=== PATIENT | male | born 1950 | race Caucasian/White ===

== ENCOUNTER → 2017-11-09 | Outpatient (CLI) | payer OTHER ==
[~2017-11-09] MED LIST: ACYC800 PO; ALBU90OI6 INH; AMLO5 PO; ARTTEAOPSB OP; ATEN25; ATEN25 PO; ATOR10; AZIT500 PO; Amlodipine Besyl5 MG; BUPR100; Benadryl25 MG; CLON2; CLON2 PO; CYCL10; CYCL10 PO; DIAZ5 PO; DOXA4 PO; FLAX; GABA600; GEMF600; GEMF600 PO; Gemfibrozil600 MG; HYDACE5 PO; HYDACE5325 PO; HYDACE7.5 PO; HYDHCL25; LAMO100; LAMO25; LISI20 PO; LITH450ER; METF500; METF500C; METF850 PO; MULVITMINF; NAPR500 PO; NAPR500ERA; OMEP20ER PO; OMEPRAZOLE DR 20 MG; OPTLUBOPOA OD; OXYC10TA19 PO; PANT40; PENNAL50; PIOG30 PO; PRAV20; PRED10 PO; PROM25; PROP65 PO; Pravachol40 MG PO; Pravastatin Sod40 MG; Prilosec Otc20 MG PO; QUET100; QUET300; QUET300 PO; QVAR7.3 G1; QVAR7.3 G1 IH; RABE20; RXHYD5325 PO; Seroquel Xr400 MG; Seroquel Xr400 MG PO; TAMSULOSIN HCL0.4 MG; TOPI15C; TOPI50; TOPI50 PO; TRAM50 PO; TRIA80TC; VENL150ER PO; VENL75ER; VENLAFAXINE HC150 MG; ZIPR80 PO
== END | disposition home or self-care (01) ==
LOC: LAB SHORT 17:17 → LAB EV 17:17
DX: N39.0 Urinary tract infection, site not specified (principal)
CPT/HCPCS: 87086

== ENCOUNTER 2019-06-25 05:35 | Observation (INO) | payer OTHER ==
[~2019-06-25] VITALS: Ht 167.6 cm; Wt 70.6 kg
[2019-06-25 09:43] LABS: BASOPHILS ABSOLUTE AUTO 0.05 K/mm3 (0.00-0.23); BASOPHILS PERCENT AUTO 1 % (0-2); EOSINOPHILS PERCENT AUTO 1 % (0-6); Hematocrit 39.4 % (37.0-53.0); Hemoglobin 13.2 g/dL (13.5-17.5); IMMATURE GRAN ABSOLUTE AUTO 0.02 K/mm3 (0.00-0.10); IMMATURE GRAN PERCENT AUTO 0 % (0-1); LYMPHOCYTES ABSOLUTE AUTO 1.09 K/mm3 (0.84-5.20); LYMPHOCYTES PERCENT AUTO 11 % (21-46); MONOCYTES ABSOLUTE AUTO 0.18 K/mm3 (0.16-1.47); MONOCYTES PERCENT AUTO 2 % (4-13); Mean Corpuscular HGB 32.4 pg (26.0-34.0); Mean Corpuscular HGB Conc 33.5 g/dL (31.5-36.5); Mean Corpuscular Volume 97 fL (80-100); Mean Platelet Volume 10.3 fL (9.1-12.4); NEUTROPHILS ABSOLUTE AUTO 8.29 K/mm3 (1.96-9.15); NEUTROPHILS PERCENT AUTO 85 % (41-73); Platelet Count 261 K/mm3 (150-400); RDW Coefficient Variation 12.2 % (11.7-14.2); RDW Standard Deviation 43.3 fL (35.1-46.3); Red Blood Cell Count 4.08 M/mm3 (4.30-5.90); White Blood Cell Count 9.73 K/mm3 (4.00-11.30)
[2019-06-25 10:01] LABS: Alanine Aminotransfer (ALT/SGP 24 U/L (12-78); Albumin, Blood 3.8 g/dL (3.4-5.0); Albumin/Globulin Ratio 0.8 (0.8-1.8); Alk Phos 144 U/L (50-136); Anion Gap 6 mmol/L (6-16); Aspartate Aminotrans (AST/SGOT 33 U/L (12-37); Bilirubin, Total 0.3 mg/dL (0.1-1.0); Blood Urea Nitrogen 16 mg/dL (8-24); Bun/Creatinine Ratio 16.3 (12.0-20.0); CO2, Blood 27 mmol/L (21-32); Calcium, Blood 8.9 mg/dL (8.5-10.1); Chloride, Blood 107 mmol/L (98-108); Creatinine, Blood 0.98 mg/dL (0.60-1.20); Glomerular Filtration Rate >60 (60-); Glucose, Blood 111 mg/dL (70-99); Potassium, Blood 3.6 mmol/L (3.5-5.5); Sodium, Blood 140 mmol/L (136-145); Total Protein, Blood 8.8 g/dL (6.4-8.2)
--- NOTE | 2019-06-25 10:57 | NUR ---
PATIENT ARRIVED TO ICU ROOM 12 AFTER TELEPHONE REPORT WAS CALLED TO THIS RN BY SHE PAULA, ED, PATIENT WAS ABLE TO AMBULATE FROM STRETCHER TO BED, INITIAL APPEARANCE SHOWS LARGELY SWOLLEN LIPS AND TONGUE, BUT PATIENT STATED THAT HE CAN BREATHE AND SWALLOW WITHOUT ANY PROBLEMS, POLACED ON MONITOR, LUNG SOUNDS ARE COARSE WITH RHONCHI THROUGHOUT, PATIENT IS ON RA SATING AT 99 %, SR WITH HR IN 80'S TO 90'S, BOWEL TONES HYPOACTIVE, REPORTS LAST BM ON 06-24-19, USES URINAL TO VOID, BUT STATES THAT HE HAS URGENCY, FREQUENCY. AND THEN IS UNABLE TO INITIATE THE STREAM, POSSIBLE PROSTABE PROBLEM PER PATIENT, SKIN C/D/I OVERALL, PATIENT WAS ORIENTED TO ROOM AND NEW ENVIRONMENT, CALL LIGHT GIVEN AND EXPLAINED, PATIENT VERBALIZED UNDERSTANDING, BLOOD GLUCOSE CHECKED AT 129 NO COVERAGE NEEDED, ALSO RECEIVED BENADRYL AND SOLUMEDROL IV AND LOVENOX INJECTION, ALSO HAS NS INFUSING AT 100 CC/HR, PATIENT'S FRIENDS AT BEDSIDE, CALL LIGHT IN REACH, WILL CONTINUE TO MONITOR.
--- NOTE | 2019-06-25 11:50 | NUR ---
DR. GREENBERG IN TO SEE PATIENT AFTER HE C/O IT GETTING HARDER TO SWALLOW, NO NEW ORDERS RECEIVED.
--- NOTE | 2019-06-25 13:06 | NUR ---
PATIENT AGAIN STATED THAT IT FELT HARDER TO SWALLOW THAN BEFORE, DR. GREENBERG IN TO SEE PATIENT, NO NEW ORDERS RECEIVED.
--- NOTE | 2019-06-25 13:25 | NUR ---
PATIENT WATCHING TV, NO S/S OF DISTRESS, SWELLING ON LIPS APPEARS TO HAVE GONE DOWN CONSIDERABLY, CALL LIGHT IN REACH, WILL CONTINUE TO MONITOR.
--- NOTE | 2019-06-25 13:36 | NUR ---
PATIENT STATED THAT HE IS "FEELING BETTER", LIPS APPEAR MUCH LESS SWOLLEN AT THIS TIME, CALL LIGHT IN REACH, WILL CONTINUE TO MONITOR.
--- NOTE | 2019-06-25 14:02 | NUR ---
DR. GREENBERG IN TO CHECK ON PATIENT, CONDITION MUCH IMPROVIDE, NO NEW ORDERS RECEUVED.
--- NOTE | 2019-06-25 17:24 | NUR ---
DR. GREENBERG IN TO CHECK ON PATIENT AGAIN, ALLOWED SOME SIPS OF ICE WATER, PATIENT TOLERATING WELL, CALL LIGHT IN REACH, WILL CONTINUE TO MONITOR.
--- NOTE | 2019-06-25 17:43 | NUR ---
SHIFT SUMMARY NOTE: PATIENT IS DOING MUCH BETTER, SWELLING HAS GONE DOWN CONSIDERABLY, PATIENT HAS NO PROBLEM SWALLOWING OR BREATHING AT THIS TIME, ALLOWED TO HAVE SOME CHIPS AND SIPS, VSS, AFEBRILE, DENIES PAIN AT THIS TIME, SCD'S IN PLACE, BLOOD SUGARS WERE 129 AND 142 RESPECTIVELY, NO COVERAGE INDICATED, PATIENT IS ALERT AND ORIENTED, LUNG SOUNDS ARE IMPROVED, NSR WITH HR IN 90'S TO LOW 100'S, NS AT 50 CC/HR INFUSING VIA 20G ON LEFT FOREARM, PATIENT IS ON SOLUMEDROL, AND BENADRYL EVERY SIX HOURS, TOLERATING WELL, FOR DETAILS SEE SHIFT ASSESSMENT DOCUMENTATION AND NURSES NOTES, CALL LIGHT IN REACH, WILL CONTINUE TO MONITOR, AND GIVE REPORT TO ONCOMING SERICULTURE TEACHER.
--- NOTE | 2019-06-25 19:00 | NUR ---
ASSUMED CARE OF PT, BEDSIDE REPORT RECEIVED. PT IS RESTING QUIETLY RECLINING IN BED AND WATCHING TV. HE DENIES SOB/DYSPNEA AT THIS TIME, DENIES CP/PRESSURE, STATES THAT HIS THROAT DOES STILL "FEELS A LITTLE RASPY" OTHERWISE DENIES PAIN. HE IS SPEAKING IN FULL SENTENCES WITHOUT VISIBLE INCREASED WORK OF BREATHING, SMALL AMOUNT OF EDEMA CONTINUES TO LEFT FACE AND NECK, PT REPORTS THAT THIS IS IMPROVING. LUNGS WITH INS/EXP WHEEZED THROUGHOUT, SATS ARE MAINTAINING ON ROOM AIR, RESP RATE WNL AT THIS TIME. HRR, SINUS ON MONITOR, RATE 80-90S AT THIS TIME, PRESSURES MAINTAINING, NO EDEMA NOTED OTHER THAN FACIAL/NECK. NORMOACTIVE BOWEL TONES ARE NOTED, ABD SOFT, NO GRIMACING/GAURDING AT THIS TIME. 300 ML CLEAR ERON URINE PRESENT IN URINAL ON BEDSIDE TABLE. PT DENIES NEEDS AT THIS TIME.
[2019-06-26 03:46] LABS: BASOPHILS ABSOLUTE AUTO 0.02 K/mm3 (0.00-0.23); BASOPHILS PERCENT AUTO 0 % (0-2); EOSINOPHILS PERCENT AUTO 0 % (0-6); Hematocrit 40.6 % (37.0-53.0); Hemoglobin 13.7 g/dL (13.5-17.5); IMMATURE GRAN ABSOLUTE AUTO 0.09 K/mm3 (0.00-0.10); IMMATURE GRAN PERCENT AUTO 1 % (0-1); LYMPHOCYTES PERCENT AUTO 7 % (21-46); MONOCYTES ABSOLUTE AUTO 0.17 K/mm3 (0.16-1.47); MONOCYTES PERCENT AUTO 1 % (4-13); Mean Corpuscular HGB 31.8 pg (26.0-34.0); Mean Corpuscular HGB Conc 33.7 g/dL (31.5-36.5); Mean Platelet Volume 10.3 fL (9.1-12.4); NEUTROPHILS ABSOLUTE AUTO 16.84 K/mm3 (1.96-9.15); NEUTROPHILS PERCENT AUTO 91 % (41-73); Platelet Count 316 K/mm3 (150-400); RDW Coefficient Variation 12.1 % (11.7-14.2); RDW Standard Deviation 42.4 fL (35.1-46.3); Red Blood Cell Count 4.31 M/mm3 (4.30-5.90); White Blood Cell Count 18.42 K/mm3 (4.00-11.30)
[2019-06-26 03:47] LABS: Mean Corpuscular Volume 94 fL (80-100)
[2019-06-26 04:01] LABS: Anion Gap 11 mmol/L (6-16); Blood Urea Nitrogen 32 mg/dL (8-24); Bun/Creatinine Ratio 27.6 (12.0-20.0); CO2, Blood 23 mmol/L (21-32); Calcium, Blood 8.8 mg/dL (8.5-10.1); Chloride, Blood 106 mmol/L (98-108); Creatinine, Blood 1.16 mg/dL (0.60-1.20); Glomerular Filtration Rate >60 (60-); Glucose, Blood 160 mg/dL (70-99); Potassium, Blood 3.7 mmol/L (3.5-5.5); Sodium, Blood 140 mmol/L (136-145)
--- NOTE | 2019-06-26 06:22 | NUR ---
PT AWAKE THROUGHOUT THIS SHIFT, C/O NAUSEA X 1 AND REPORTED WELL CONTROLLED WITH SINGLE DOSE OF ZOFRAN IV. HE REPORTS THAT HIS VOICE QUALITY HAS RETURNED TO BASELINE AND THAT HIS THROAT NO LONGER FEELS "RASPY" THIS AM. LUNGS ARE NOW CLEAR THROUGHOUT, HE CONTINUES TO MAINTAIN SATS ON ROOM AIR, NO INCREASED WORK OF BREATHING HAS BEEN NOTED THROUGHOUT SHIFT. EDEMA IS GREATLY IMPROVED TO FACE AND NECK. HRR, CONTINUES IN SINUS, PRESSURES MAINTAINED THROUGHOUT SHIFT. HE HAS EXPRESSED CONCERN REGARDING BLOOD GLUCOSE LEVELS THIS AM, DISCUSSED EFFECT OF SOLUMEDROL ON BLOOD GLUCOSE LEVELS WELL ORDERS FOR LOW SLIDING SCALE IF LEVELS INCREASE TO GREATER THAN 200, UNDERSTANDING VERB.
--- NOTE | 2019-06-26 07:36 | NUR ---
CARE ASSUMED CARE AND REPORT ASSUMED FROM CHANEL NO RN. PT SITTING UP IN BED WATCHING TV. IN NO DISTRESS. LUNG SOUNDS CLEAR, SPO2 98% ON RA. LIPS NOT SWOLLEN, PT DRINKING WATER WITHOUT DIFFICULTY, AND TALKING NORMALLY. NSR, HR 80S. NO COMPLAINTS AT THIS TIME. NS MIV INFUSING AT 50 ML/HR PER ORDER. WILL CONTINUE TO MONITOR.
[2019-06-26] MEDS ORDERED: BENADRYL25 MG PO (11:57)
[2019-06-26] MEDS ORDERED: MONT10T PO (11:57)
[2019-06-26] MEDS ORDERED: Prednisone10 MG PO (11:58)
[2019-06-26] MEDS ORDERED: HYDR10 PO (11:58)
--- NOTE | 2019-06-26 12:21 | NUR ---
DISCHARGE SCRIPTS CALLED TO [facility]. PERIPHERAL IVS REMOVED. PT COUNSELED ON DISCHARGE INSTRUCTIONS. AMBULATED TO EXIT WITH FAMILY.
== END 2019-06-26 12:20 | disposition home or self-care (01) ==
LOC: ER 05:35 → ICUW 05:36 → UNDODEPER 10:50 → ICUW 10:57
PROVIDERS: Nurse Practitioner Acute Care; ADMIT Internal Medicine
DX: T78.3XXA Angioneurotic edema, initial encounter (principal); T44.5X5A Adverse effect of predominantly beta-adrenoreceptor agonists, initial encounter; J44.9 Chronic obstructive pulmonary disease, unspecified; E11.9 Type 2 diabetes mellitus without complications; I10 Essential (primary) hypertension; D72.828 Other elevated white blood cell count; T38.0X5A Adverse effect of glucocorticoids and synthetic analogues, initial encounter; M19.90 Unspecified osteoarthritis, unspecified site; M54.5 Low back pain; F32.9 Major depressive disorder, single episode, unspecified; K21.9 Gastro-esophageal reflux disease without esophagitis; E78.00 Pure hypercholesterolemia, unspecified; B18.2 Chronic viral hepatitis C; Z98.52 Vasectomy status; Z90.49 Acquired absence of other specified parts of digestive tract; Z87.891 Personal history of nicotine dependence; Z88.0 Allergy status to penicillin; Z88.6 Allergy status to analgesic agent; Z88.8 Allergy status to other drugs, medicaments and biological substances; Z79.51 Long term (current) use of inhaled steroids; Z79.84 Long term (current) use of oral hypoglycemic drugs; Z79.899 Other long term (current) drug therapy
CPT/HCPCS: 36415; 36430; 71045; 80048; 80053; 82947; 85025; 86900; 86901; 94640; 96372; 96374; 96375; 96376; 99285-25; C9113; G0378; J0597; J1200; J1650; J2405; J2930; J7030; P9059

== ENCOUNTER 2022-03-04 11:41 | Day surgery (SDC) | payer OTHER ==
[~2022-03-04] VITALS: Ht 167.6 cm; Wt 73.6 kg
[~2022-03-04 11:41] MED LIST changes: +BENADRYL25 MG PO; +HYDR10 PO; +MONT10T PO; +Prednisone10 MG PO
[2022-03-04] MEDS ORDERED: OLAN10A (12:10)
[2022-03-04] MEDS ORDERED: PREG75 (12:11)
[2022-03-04] MEDS ORDERED: TAMS.4ER (12:11)
== END 2022-03-04 13:54 | disposition home or self-care (01) ==
LOC: ORSCSDS 11:41
PROVIDERS: Surgery
PROC: 0DBH8ZX Excision of Cecum, Via Natural or Artificial Opening Endoscopic, Diagnostic (ICD-10-PCS; principal; 2022-03-04 13:00)
PROC: 0DBL8ZX Excision of Transverse Colon, Via Natural or Artificial Opening Endoscopic, Diagnostic (ICD-10-PCS; principal; 2022-03-04 13:00)
DX: Z12.11 Encounter for screening for malignant neoplasm of colon (principal); Z86.010 Personal history of colon polyps; D12.0 Benign neoplasm of cecum; D12.3 Benign neoplasm of transverse colon; K21.9 Gastro-esophageal reflux disease without esophagitis; J44.9 Chronic obstructive pulmonary disease, unspecified; I10 Essential (primary) hypertension; E78.5 Hyperlipidemia, unspecified; Z87.891 Personal history of nicotine dependence; Z79.899 Other long term (current) drug therapy
CPT/HCPCS: 82947; 88305; J2704; J7120

== ENCOUNTER → 2023-02-17 | Outpatient (CLI) | payer OTHER ==
[~2023-02-17] MED LIST changes: +OLAN10A; +PREG75; +TAMS.4ER
== END ==
LOC: LAB 13:20 → LAB SHORT 13:20
DX: R30.0 Dysuria (principal)
CPT/HCPCS: 87086

== ENCOUNTER → 2023-05-10 | Outpatient (CLI) | payer OTHER | LOC: LAB SHORT 14:45 → LAB 14:45 | DX: R10.13 Epigastric pain (principal) | CPT/HCPCS: 87338 ==

== ENCOUNTER → 2023-06-25 | Outpatient (CLI) | payer OTHER ==
[2023-06-25 19:04] LABS: BASOPHILS ABSOLUTE AUTO 0.05 K/mm3 (0.00-0.23); BASOPHILS PERCENT AUTO 1 % (0-2); EOSINOPHILS ABSOLUTE AUTO 0.12 K/mm3 (0.00-0.68); EOSINOPHILS PERCENT AUTO 1 % (0-6); Hematocrit 33.6 % (37.0-53.0); Hemoglobin 11.2 g/dL (13.5-17.5); IMMATURE GRAN ABSOLUTE AUTO 0.03 K/mm3 (0.00-0.10); IMMATURE GRAN PERCENT AUTO 0 % (0-1); LYMPHOCYTES ABSOLUTE AUTO 1.42 K/mm3 (0.84-5.20); LYMPHOCYTES PERCENT AUTO 14 % (21-46); MONOCYTES ABSOLUTE AUTO 0.87 K/mm3 (0.16-1.47); MONOCYTES PERCENT AUTO 9 % (4-13); Mean Corpuscular HGB 30.3 pg (26.0-34.0); Mean Corpuscular HGB Conc 33.3 g/dL (31.5-36.5); Mean Corpuscular Volume 91 fL (80-100); Mean Platelet Volume 9.5 fL (9.1-12.4); NEUTROPHILS ABSOLUTE AUTO 7.61 K/mm3 (1.96-9.15); NEUTROPHILS PERCENT AUTO 75 % (41-73); Platelet Count 408 K/mm3 (150-400); RDW Coefficient Variation 14.9 % (11.7-14.2); RDW Standard Deviation 49.3 fL (35.1-46.3); RETICULOCYTE ABSOLUTE 0.0507 M/mm3 (0.0200-0.1100); RETICULOCYTE COUNT PERCENT 1.37 % (0.50-2.50)
[2023-06-25 20:19] LABS: Percent Saturation 7.9 % (20.0-50.0); Thyroid Stimulating Hormone 0.901 uIU/mL (0.360-4.800)
[2023-06-27 09:27] LABS: BILIRUBIN, TOTAL 0.3 mg/dL (0.0-1.2); CALCIUM, SERUM 9.2 mg/dL (8.6-10.2); CREATININE, SERUM 1.19 mg/dL (0.76-1.27); POTASSIUM, SERUM 4.3 mmol/L (3.5-5.2); PROTEIN, TOTAL, SERUM 8.1 g/dL (6.0-8.5)
== END | disposition home or self-care (01) ==
LOC: LAB SHORT 12:10 → LAB 12:10
PROVIDERS: Student in an Organized Health Care Education/Training Program
DX: D50.8 Other iron deficiency anemias (principal); R53.83 Other fatigue
CPT/HCPCS: 80053; 82607; 82728; 82746; 83540; 83550; 84443; 85025; 85045

== ENCOUNTER 2023-07-03 16:13 | Emergency (ER) | payer OTHER ==
[~2023-07-03] VITALS: Ht 165.1 cm; Wt 56.7 kg
[2023-07-03 20:19] VITALS: BP 164/74
== END 2023-07-03 20:19 | disposition home or self-care (01) ==
LOC: ER 16:13
DX: M25.552 Pain in left hip (principal); N50.812 Left testicular pain; G89.29 Other chronic pain; E11.9 Type 2 diabetes mellitus without complications; I10 Essential (primary) hypertension; E78.5 Hyperlipidemia, unspecified; Z88.0 Allergy status to penicillin; Z88.8 Allergy status to other drugs, medicaments and biological substances; Z88.6 Allergy status to analgesic agent; Z79.899 Other long term (current) drug therapy; Z79.84 Long term (current) use of oral hypoglycemic drugs; Z87.891 Personal history of nicotine dependence
CPT/HCPCS: 99283

== ENCOUNTER 2023-11-26 10:19 | Observation (INO) | payer OTHER ==
[~2023-11-26] VITALS: Ht 175.3 cm; Wt 71.4 kg
[~2023-11-26 10:19] MED LIST changes: +AMLODIPINE BESYL5 MG PO; +CEFD300 PO; +CEPH500 PO; +HIGH POTENCY P1 EAC2 PO; +LACT PO; +METF500 PO; +NUBEQA300 MG PO; +ORGOVYX120 MG PO; +PRAV20 PO; +PREGABALIN75 MG PO; +QUETIAPINE FUM400 M1 PO; +TAMSULOSIN HCL0.4 M1 PO; +Venlafaxine HC150 MG PO; +ZYPREXA15 MG PO
[2023-11-26 10:50] LABS: BASOPHILS ABSOLUTE AUTO 0.02 K/mm3 (0.00-0.23); BASOPHILS PERCENT AUTO 0 % (0-2); EOSINOPHILS ABSOLUTE AUTO 0.19 K/mm3 (0.00-0.68); EOSINOPHILS PERCENT AUTO 2 % (0-6); Hematocrit 27.2 % (37.0-53.0); IMMATURE GRAN ABSOLUTE AUTO 0.04 K/mm3 (0.00-0.10); IMMATURE GRAN PERCENT AUTO 1 % (0-1); LYMPHOCYTES ABSOLUTE AUTO 1.12 K/mm3 (0.84-5.20); LYMPHOCYTES PERCENT AUTO 14 % (21-46); MONOCYTES ABSOLUTE AUTO 0.49 K/mm3 (0.16-1.47); MONOCYTES PERCENT AUTO 6 % (4-13); Mean Corpuscular HGB 31.3 pg (26.0-34.0); Mean Corpuscular HGB Conc 33.1 g/dL (31.5-36.5); Mean Corpuscular Volume 94 fL (80-100); Mean Platelet Volume 9.6 fL (9.1-12.4); NEUTROPHILS ABSOLUTE AUTO 6.31 K/mm3 (1.96-9.15); NEUTROPHILS PERCENT AUTO 77 % (41-73); Platelet Count 218 K/mm3 (150-400); RDW Coefficient Variation 14.9 % (11.7-14.2); Red Blood Cell Count 2.88 M/mm3 (4.30-5.90); White Blood Cell Count 8.17 K/mm3 (4.00-11.30)
[2023-11-26 11:25] LABS: Alanine Aminotransfer (ALT/SGP 29 U/L (12-78); Albumin, Blood 3.2 g/dL (3.4-5.0); Albumin/Globulin Ratio 0.9 (0.8-1.8); Alk Phos 98 U/L (50-136); Anion Gap 15 mmol/L (3-11); Aspartate Aminotrans (AST/SGOT 101 U/L (12-37); Bilirubin, Total 0.4 mg/dL (0.1-1.0); Blood Urea Nitrogen 23 mg/dL (8-24); Bun/Creatinine Ratio 12.5 (12.0-20.0); CO2, Blood 20 mmol/L (21-32); Chloride, Blood 108 mmol/L (98-108); Creatinine, Blood 1.84 mg/dL (0.60-1.20); Ethanol (Alcohol), Blood, Med <3 mg/dL; Globulin, Blood 3.6 g/dL (2.2-4.0); Glomerular Filtration Rate 38 (60-); Glucose, Blood 123 mg/dL (70-99); Potassium, Blood 3.6 mmol/L (3.5-5.5); Sodium, Blood 139 mmol/L (136-145); Total Protein, Blood 6.8 g/dL (6.4-8.2)
[2023-11-26 12:27] LABS: Source, Urine Clean Catch
[2023-11-26 12:31] LABS: Appearance, Urine Clear (Clear); Bilirubin, Urine Neg (Neg); Blood, Urine Neg (Neg); Glucose Qualitative, Urine Neg (Neg); Ketones, Urine Neg (Neg); Leukocyte Esterase, Urine Neg (Neg); Nitrite, Urine Neg (Neg); Protein, Urine Neg (Neg); Specific Gravity, Urine 1.015 (1.003-1.022); Urobilinogen, Urine NORM (Normal)
[2023-11-26 12:33] LABS: Color, Urine Pale Yellow (P-Yellow)
[2023-11-26] MEDS ORDERED: NS 1,000 ML IV SCH ×2 (12:50→14:50)
[2023-11-26 13:09] LABS: U Amphetamine Screen Not Detected; U Barbituate Screen Not Detected; U Benzodiazapine Screen Not Detected; U Cannabinoids Screen DETECTED; U Methamphetamine Screen Not Detected; U Opiates Screen DETECTED
[2023-11-26 13:10] LABS: U Buprenorphine Screen Not Detected; U Cocaine Screen Not Detected; U Methadone Screen Not Detected; U Oxycodone Screen Not Detected; U Phencyclidine Screen Not Detected
[2023-11-26] MEDS ORDERED: Acetaminophen 325 MG TABLET PO PRN (14:50)
[2023-11-26] MEDS ORDERED: HydrALAZINE HCl 20 MG / ML 1ML Vial IV PRN (14:55)
[2023-11-26 16:22] VITALS: BP 154/109
[2023-11-26] MEDS ORDERED: Insulin Regular 100 UNIT/ML 10ML Vial SC SCH (16:30)
[2023-11-26] MEDS ORDERED: PREG75 PO (17:01)
[2023-11-26] MEDS ORDERED: FAMOTIDINE PO (17:03)
[2023-11-26] MEDS ORDERED: CYCL10 PO (17:07)
[2023-11-26] MEDS ORDERED: GEMF600 PO (17:08)
[2023-11-26] MEDS ORDERED: OMEP20ER PO (17:10)
--- NOTE | 2023-11-26 18:01 | NUR ---
SHIFT SUMMARY PT A&OX2, FORGETFUL AND IMPULSIVE, SLURRED SPEECH PRESENT, ABLE TO FOLLOW COMMANDS, ASYMPTOMATICALLY HYPERTENSIVE, NPO, AMB W/ SBA, INCONT, AND DENIED PAIN. CALL LIGHT WITHIN REACH AND BED ALARM ON.
[2023-11-26] MEDS ORDERED: FLUT.05NI (18:19)
[2023-11-26 19:41] VITALS: BP 185/122
[2023-11-26] MEDS ORDERED: HYDROCODONE-AC1 EA19 PO (20:52)
[2023-11-26] MEDS ORDERED: NORCO 7.5-3251 EAC1 PO (20:53)
[2023-11-26] MEDS ORDERED: CHLO25B PO (20:54)
[2023-11-26] MEDS ORDERED: QUETIAPINE FUM10011 PO (20:56)
[2023-11-26] MEDS ORDERED: ORGOVYX120 MG PO (21:01)
[2023-11-26] MEDS ORDERED: PROAIR DIGIHAL90 MCG INH (21:04)
[2023-11-26 23:02] VITALS: BP 187/106
[2023-11-26] MEDS ORDERED: HydrALAZINE HCl 25 MG Tab PO ONE (23:40)
[2023-11-27 03:35] VITALS: BP 171/111
--- NOTE | 2023-11-27 03:46 | NUR ---
SPECIAL EDUCATION CASE MANAGER SUMMARY NEW ADMIT ON AM SHIFT YESTERDAY. SISTER CALLED AND REPORTED THAT PRIOR TO PT ADMISSION, THAT HE HAD "FALLEN AT HOME AND HIT HIS HEAD" AND WAS ASKING FOR UPDATES WITH HIS HEALTH. PT WAS SLEEPING, EASILY AWAKENED, VERBAL RESPONSE WAS APPROPRIATE TO QUESTIONS ASKED, DENIED PAIN. AND WAS ABLE TO TALK TO SISTER ON THE PHONE. IVF OF NS INFUSING AT 75 ML/HR, NPO. VOIDING SUFFICIENTLY - USING URINAL AND ACCIDENTLY DUMPED URINAL ON BEDDING, BEDDING CHANGED. BP REMAINS ELEVATED, OTHERWISE VSS. IV HYDRALIZINE WAS ADMINISTERED, BUT BP REMAINED HIGH, NOTIFIED AND ONE DOSE OF PO HYDRALIZINE WAS ORDERED, BP STILL HIGH. SEE MAR FOR MEDS ADMIN - TO ADDRESS BP. HAS BEEN RESTING QUIETLY WITH FEW INTERUPTINS OTHERWISE. BED ALARM ON, CALL LIGHT IN REACH, BED IN LOW POSITION AND RAILS UP X 2 FOR SAFETY. ABLE TO REPOSITION SELF IN BED FOR COMFORT. WILL CONTINUE TO MONITOR
[2023-11-27 05:23] LABS: BASOPHILS ABSOLUTE AUTO 0.02 K/mm3 (0.00-0.23); BASOPHILS PERCENT AUTO 0 % (0-2); EOSINOPHILS ABSOLUTE AUTO 0.37 K/mm3 (0.00-0.68); EOSINOPHILS PERCENT AUTO 5 % (0-6); Hematocrit 35.2 % (37.0-53.0); Hemoglobin 11.8 g/dL (13.5-17.5); IMMATURE GRAN ABSOLUTE AUTO 0.03 K/mm3 (0.00-0.10); IMMATURE GRAN PERCENT AUTO 0 % (0-1); LYMPHOCYTES ABSOLUTE AUTO 1.11 K/mm3 (0.84-5.20); LYMPHOCYTES PERCENT AUTO 14 % (21-46); MONOCYTES ABSOLUTE AUTO 0.53 K/mm3 (0.16-1.47); MONOCYTES PERCENT AUTO 7 % (4-13); Mean Corpuscular HGB 31.1 pg (26.0-34.0); Mean Corpuscular HGB Conc 33.5 g/dL (31.5-36.5); Mean Corpuscular Volume 93 fL (80-100); Mean Platelet Volume 9.9 fL (9.1-12.4); NEUTROPHILS PERCENT AUTO 74 % (41-73); Platelet Count 278 K/mm3 (150-400); RDW Coefficient Variation 14.7 % (11.7-14.2); RDW Standard Deviation 49.8 fL (35.1-46.3); White Blood Cell Count 7.86 K/mm3 (4.00-11.30)
[2023-11-27 05:51] LABS: Albumin/Globulin Ratio 0.9 (0.8-1.8); Bilirubin, Total 0.5 mg/dL (0.1-1.0); Bun/Creatinine Ratio 14.2 (12.0-20.0); Calcium, Blood 9.6 mg/dL (8.5-10.1); Creatinine, Blood 1.2 mg/dL (0.60-1.20); Globulin, Blood 4.6 g/dL (2.2-4.0); Potassium, Blood 3.5 mmol/L (3.5-5.5); Total Protein, Blood 8.6 g/dL (6.4-8.2)
[2023-11-27 07:40] VITALS: BP 175/103
[2023-11-27] MEDS ORDERED: AmLODIPine Besylate 5 MG Tab PO SCH (09:00)
[2023-11-27] MEDS ORDERED: Potassium Chloride 20 MEQ TabCR PO ONE (09:00)
[2023-11-27] MEDS ORDERED: Enoxaparin 40 MG/0.4 ML SYR SC SCH (09:00)
[2023-11-27] MEDS ORDERED: Carvedilol 6.25 MG Tab PO SCH (09:00)
[2023-11-27] MEDS ORDERED: CARV6.25 PO (10:53)
--- NOTE | 2023-11-27 12:23 | NUR ---
DISCHARGE NOTE PT DISCHARGED HOME AT 11:15. PT PROVIDED W/ VERBAL AND WRITTEN INSTRUCTIONS AND DEMONSTRATED UNDERSTANDING. THIS NURSE EXTENSIVELY EDUCATED PT ON MEDICATIONS. PT A&OX4, VSS, AMB IND, TOLERATING PO, VOIDING, AND DENIED PAIN. BELONINGS WERE RETURNED AND PT ESCOURTED OUT BY [facility] TO PATIENT ENTRANCE FOR TRANSPORT BY [facility].
[2023-12-02] MEDS ORDERED: NARCAN4 M1 (19:54)
[2023-12-02] MEDS ORDERED: FEROSUL325 M1 PO (19:54)
== END 2023-11-27 12:56 | disposition home health service (06) ==
LOC: ER 10:19 → MEDS 10:20 → ENPENDDIS 11-27 10:35 → MEDS 11-27 12:56
PROVIDERS: Emergency Medicine; ADMIT Internal Medicine
DX: G92.8 Other toxic encephalopathy (principal); E11.22 Type 2 diabetes mellitus with diabetic chronic kidney disease; I12.9 Hypertensive chronic kidney disease with stage 1 through stage 4 chronic kidney disease, or unspecified chronic kidney disease; N18.2 Chronic kidney disease, stage 2 (mild); N17.9 Acute kidney failure, unspecified; J44.9 Chronic obstructive pulmonary disease, unspecified; F32.9 Major depressive disorder, single episode, unspecified; E78.00 Pure hypercholesterolemia, unspecified; K21.9 Gastro-esophageal reflux disease without esophagitis; Z66 Do not resuscitate; Z79.899 Other long term (current) drug therapy; Z79.84 Long term (current) use of oral hypoglycemic drugs; Z88.0 Allergy status to penicillin; Z88.8 Allergy status to other drugs, medicaments and biological substances; Z85.46 Personal history of malignant neoplasm of prostate
CPT/HCPCS: 36415; 70450; 80053; 81003; 82140; 82947; 85025; 94760; 96360; 96361; 96372; 96374; 96376; 99285-25; A9270; G0378; J0360; J1650; J1815; J7030

== ENCOUNTER 2023-11-30 10:25 | Observation (INO) | payer OTHER ==
[~2023-11-30] VITALS: Ht 167.6 cm; Wt 71.5 kg
[~2023-11-30 10:25] MED LIST changes: +CARV6.25 PO; +CHLO25B PO; +FAMOTIDINE PO; +FLUT.05NI; +HYDROCODONE-AC1 EA19 PO; +NORCO 7.5-3251 EAC1 PO; +PREG75 PO; +PROAIR DIGIHAL90 MCG INH; +QUETIAPINE FUM10011 PO
[2023-11-30] MEDS ORDERED: Ipratropium/Albuterol SulF 2.5-0.5MG/3 ML Amp INH ONE (10:45)
[2023-11-30] MEDS ORDERED: NS 500 ML IV SCH (10:45)
[2023-11-30 10:51] LABS: Bicarbonate Venous 18.3 mmol/L (24.0-30.0); PCO2 Venous 54.4 mmHg (38-42)
[2023-11-30 10:52] LABS: pH Blood Venous 7.21 (7.34-7.37)
[2023-11-30] MEDS ORDERED: Dextrose 50% 50 ML Syringe IV ONE (10:55)
[2023-11-30] MEDS ORDERED: Azithromycin 500 MG in NS 250 ML IV ONE (11:00)
[2023-11-30] MEDS ORDERED: MethylPREDNISolone Sod Succ 125 MG Vial IV ONE (11:00)
[2023-11-30 11:03] LABS: BASOPHILS ABSOLUTE AUTO 0.01 K/mm3 (0.00-0.23); BASOPHILS PERCENT AUTO 0 % (0-2); EOSINOPHILS ABSOLUTE AUTO 0.32 K/mm3 (0.00-0.68); EOSINOPHILS PERCENT AUTO 6 % (0-6); Hematocrit 29.1 % (37.0-53.0); Hemoglobin 9.4 g/dL (13.5-17.5); IMMATURE GRAN ABSOLUTE AUTO 0.02 K/mm3 (0.00-0.10); IMMATURE GRAN PERCENT AUTO 0 % (0-1); LYMPHOCYTES PERCENT AUTO 40 % (21-46); MONOCYTES ABSOLUTE AUTO 0.58 K/mm3 (0.16-1.47); MONOCYTES PERCENT AUTO 12 % (4-13); Mean Corpuscular HGB 31.5 pg (26.0-34.0); Mean Corpuscular HGB Conc 32.3 g/dL (31.5-36.5); Mean Corpuscular Volume 98 fL (80-100); Mean Platelet Volume 9.7 fL (9.1-12.4); NEUTROPHILS ABSOLUTE AUTO 2.08 K/mm3 (1.96-9.15); NEUTROPHILS PERCENT AUTO 42 % (41-73); Platelet Count 211 K/mm3 (150-400); RDW Coefficient Variation 14.9 % (11.7-14.2); Red Blood Cell Count 2.98 M/mm3 (4.30-5.90); White Blood Cell Count 5.01 K/mm3 (4.00-11.30)
[2023-11-30 11:26] LABS: Albumin, Blood 3.5 g/dL (3.4-5.0); Albumin/Globulin Ratio 0.9 (0.8-1.8); Bilirubin, Total 0.2 mg/dL (0.1-1.0); Bun/Creatinine Ratio 15.4 (12.0-20.0); Calcium, Blood 8.8 mg/dL (8.5-10.1); Creatinine, Blood 2.28 mg/dL (0.60-1.20); Globulin, Blood 3.9 g/dL (2.2-4.0); Magnesium, Blood 1.8 mg/dL (1.6-2.4); Potassium, Blood 3.9 mmol/L (3.5-5.5); Total Protein, Blood 7.4 g/dL (6.4-8.2)
[2023-11-30 11:54] LABS: Source, Urine Clean Catch
[2023-11-30 11:56] LABS: Influenza A, PCR NEGATIVE (NEGATIVE); Influenza B, PCR NEGATIVE (NEGATIVE); Resp Syncytial Virus, PCR NEGATIVE (NEGATIVE); SARS-Cov-2 (COVID-19) PCR, MMC NEGATIVE (NEGATIVE)
[2023-11-30 12:04] LABS: Appearance, Urine Clear (Clear); Bilirubin, Urine Neg (Neg); Blood, Urine Neg (Neg); Color, Urine Yellow (P-Yellow); Glucose Qualitative, Urine Neg (Neg); Ketones, Urine Neg (Neg); Leukocyte Esterase, Urine Neg (Neg); Nitrite, Urine Neg (Neg); Protein, Urine 1+ (Neg); Urobilinogen, Urine NORM (Normal)
[2023-11-30 12:37] LABS: U Amphetamine Screen Not Detected; U Barbituate Screen Not Detected; U Benzodiazapine Screen Not Detected; U Buprenorphine Screen Not Detected; U Cannabinoids Screen DETECTED; U Cocaine Screen Not Detected; U Methadone Screen Not Detected; U Methamphetamine Screen Not Detected; U Opiates Screen DETECTED; U Oxycodone Screen Not Detected; U Phencyclidine Screen Not Detected
[2023-11-30 12:49] LABS: pH Blood Venous 7.24 (7.34-7.37)
[2023-11-30 12:50] LABS: PCO2 Venous 46 mmHg (38-42)
[2023-11-30 12:51] LABS: Base Excess Venous -8.1 mmol/L; Bicarbonate Venous 17.9 mmol/L (24.0-30.0)
[2023-11-30] MEDS ORDERED: Lactated Ringer's 1,000 ML IV SCH (14:00)
[2023-11-30 14:38] LABS: Base Excess Venous -6.5 mmol/L; PCO2 Venous 45.4 mmHg (38-42); pH Blood Venous 7.26 (7.34-7.37)
[2023-11-30 15:40] VITALS: BP 157/98
[2023-11-30] MEDS ORDERED: Ipratropium/Albuterol SulF 2.5-0.5MG/3 ML Amp INH PRN (16:35)
--- NOTE | 2023-11-30 16:54 | NUR ---
ADMIT SUMMARY THE PT IS A NEW ADMIT LATE THIS AFTERNOON. HE IS OBTUNDED BUT ORIENTED TO SELF, DATE/TIME, AND PERSON. THE PT IS NOT AWARE OF HIS CURRENT SITUATION, AND LOCATION. HE ANSWERS A FEW QUESTIONS WITH 1-2WORDS AT A TIME. HIS SPEECH IS SOFT. WHEN ASSESSING HIS PUPILS THEY ARE 2MM EQUAL AND SLUGGISH TO RESPONSE. THE PT IS CURRENTLY BEDREST D/T AMS, BIPAP NEEDS, AND HX OF FALLS (REPORTED BY THE PT). THE PT IS ON AVAP SETTINGS W/O ANY ADDITIONAL OXYGEN FOR SUPPLIMENT. RT REPORTED THAT THE PT WAS HAVING SOME APNEA IN THE ER AND HAS THE PRESSURES TO SUPPORT HIM. SP02 99%-100%. ON TELE THE PT IS SB 50'S-60'S. BP STABLE AT THIS TIME, SLIGHTLY HYPERTENZIVE. PT HAS A HX OF HTN. HE HAS LACTATIC RINGERS INFUSING PER EMAR X1 BAG. BED ALARM ON, THREE SIDE RAILS UP, BED IN LOW, CALL LIGHT IN REACH. SEE NOTES FOR ANY UPDATES.
--- NOTE | 2023-11-30 17:53 | NUR ---
PT IS BECOMING MORE ORINTED AND ALERT THEN ARRIVAL TO THE UNIT. HE DID HAVE AN INC VOID AND I GOT HIM TO VOID 300CC IN THE URINAL. D/T INC I PLACED THE PT ON A CONDOM CATH AND A BRIEF. I LET THE PT KNOW WHEN HE BECOMES MORE ORIENTED AND USES HIS CALL BUTTON THEN WE WILL TAKE OFF THE CATH AND USE THE URINAL. SEE NOTES FOR ANYMORE UPDATES.
[2023-11-30 19:18] VITALS: BP 124/86
--- NOTE | 2023-11-30 20:18 | NUR ---
UPDATE TO SISTER, SUSHMA RECEIVED VERBAL CONSENT FROM PATIENT TO SPEAK WITH SISTER SUSHMA SANTORO. SUSHMA LIVES IN [place]. UPDATE PROVIDED TO SISTER REGARDING CURRENT STATUS, PLAN OF CARE. SUSHMA ENDORSES THAT PATIENT HAS BEEN EXPERIENCING AMS AND LETHARGY FOR A FEW WEEKS. PER SUSHMA, PATIENT HAD REPORTED TO HER THAT HE HAD BEEN TAKING LIQUID MORPHINE ( DOES NOT HAVE A PRESCRIPTION- IS UNAWARE HOW HE HAD ACCESS TO MEDICATION) IN ADDITION TO PO PRESCRIBED OXYCODONE. SUSHMA CONCERNED PATIENT DOES LIVE WITH HER 96 YEAR OLD FATHER. SUSHMA TO CALL AND CHECK IN ON HER FATHER REGARDING HIS STATUS. REPORTED THAT SHE WOULD RECEIVE CONTACT IF ANYTHING WERE TO CHANGE WITH PATIENT.
[2023-11-30 22:59] VITALS: BP 188/107
[2023-11-30] MEDS ORDERED: HydrALAZINE HCl 20 MG / ML 1ML Vial IV PRN (23:10)
[2023-11-30 23:21] VITALS: BP 191/104
[2023-11-30 23:41] VITALS: BP 183/104
[2023-11-30 23:52] VITALS: BP 177/98
[2023-12-01 03:09] VITALS: BP 218/155
[2023-12-01] MEDS ORDERED: AmLODIPine Besylate 5 MG Tab PO SCH (03:20)
[2023-12-01 03:46] VITALS: BP 177/109
[2023-12-01 03:54] LABS: BASOPHILS ABSOLUTE AUTO 0.02 K/mm3 (0.00-0.23); BASOPHILS PERCENT AUTO 0 % (0-2); EOSINOPHILS ABSOLUTE AUTO 0.02 K/mm3 (0.00-0.68); EOSINOPHILS PERCENT AUTO 0 % (0-6); Hematocrit 32.8 % (37.0-53.0); Hemoglobin 11.1 g/dL (13.5-17.5); IMMATURE GRAN ABSOLUTE AUTO 0.03 K/mm3 (0.00-0.10); IMMATURE GRAN PERCENT AUTO 0 % (0-1); LYMPHOCYTES ABSOLUTE AUTO 1.33 K/mm3 (0.84-5.20); LYMPHOCYTES PERCENT AUTO 14 % (21-46); MONOCYTES PERCENT AUTO 5 % (4-13); Mean Corpuscular HGB 31.9 pg (26.0-34.0); Mean Corpuscular HGB Conc 33.8 g/dL (31.5-36.5); Mean Corpuscular Volume 94 fL (80-100); Mean Platelet Volume 9.6 fL (9.1-12.4); NEUTROPHILS ABSOLUTE AUTO 7.67 K/mm3 (1.96-9.15); NEUTROPHILS PERCENT AUTO 80 % (41-73); Platelet Count 235 K/mm3 (150-400); RDW Coefficient Variation 14.5 % (11.7-14.2); RDW Standard Deviation 49.6 fL (35.1-46.3); Red Blood Cell Count 3.48 M/mm3 (4.30-5.90); White Blood Cell Count 9.57 K/mm3 (4.00-11.30)
[2023-12-01 04:02] VITALS: BP 171/106
[2023-12-01 04:14] LABS: Albumin, Blood 3.8 g/dL (3.4-5.0); Albumin/Globulin Ratio 0.9 (0.8-1.8); Bilirubin, Total 0.3 mg/dL (0.1-1.0); Bun/Creatinine Ratio 21.7 (12.0-20.0); Calcium, Blood 9.3 mg/dL (8.5-10.1); Creatinine, Blood 1.29 mg/dL (0.60-1.20); Globulin, Blood 4.2 g/dL (2.2-4.0); Potassium, Blood 4.1 mmol/L (3.5-5.5)
[2023-12-01 04:29] VITALS: BP 164/108
--- NOTE | 2023-12-01 04:46 | NUR ---
SHIFT SUMMARY THIS RN ASSUMED CARE AT APPROX 1915. EARLIER, PATIENT LETHARGIC, AROUSABLE TO VERBAL STIMULI. ALERT AND ORIENTED X2 - ABLE TO REPORT NAME, DATE OF , AND THAT HE IS AT [facility]. UNABLE TO RECALL EVENTS LEADING TO ADMISSION. PERRLA. MOVES ALL EXTREMITIES EQUALLY. PATIENT MUCH MORE ALERT THIS MORNING, EASILY AROUSABLE WITH VERBAL STIMULI. REMAINS ALERT AND ORIENTED X2-3. COMMUNICATING NEEDS MORE. ABLE TO SWALLOW WATER AND PO MEDICATION W/O DIFFICULTY. TELEMETRY SHOWING SINUS 60s-80s. PATIENT's BP INCREASING T/O NIGHT. AROUND 2300, PATIENTs SBP 180s-190s. MD NGUYEN ROUNDING ON UNIT. MD PLACED ORDER FOR IV HYDRALAZINE FOR SBP >180. ADMINISTERED PER EMAR, SBP 170s. AROUND 0300, PATIENTs SBP 210s. MD NGUYEN CONTACTED, RECEIVED ORDER FOR 5MG PO AMLODIPINE DAILY STARTING NOW. ADMINISTERED PER EMAR, LAST BP 164/108. DENIES CHEST PAIN, PRESSURE. DID REPORT HEADACHE WITH INCREASED BP, HAS SINCE DECREASED. PATIENT ON BIPAP AVAPS SETTING WITH SLEEP, SATs >90%. TOLERATING BREAKS ON ROOM AIR. RESPIRATIONS EVEN, UNLABORED. CONDOM CATH AND ATTENDS IN PLACE FOR INCONTINENCE, DRAINING YELLOW URINE TO GRAVITY. CHANGING PRN TO KEEP C/D/I. Q2H REPOSITIONING. CALL LIGHT IN REACH. BED ALARM ON. WILL CONTINUE TO MONITOR AND REPORT TO ONCOMING RN.
[2023-12-01 07:41] VITALS: BP 177/105
[2023-12-01] MEDS ORDERED: Fluticasone 0.05% Nasal Spray PRN (08:15)
[2023-12-01] MEDS ORDERED: Albuterol HFA200 ACT/6.7 GM INH INH PRN (08:25)
[2023-12-01 08:49] LABS: Base Excess Venous -1.3 mmol/L; Bicarbonate Venous 22.4 mmol/L (24.0-30.0); PCO2 Venous 39 mmHg (38-42); pH Blood Venous 7.38 (7.34-7.37)
[2023-12-01] MEDS ORDERED: Carvedilol 6.25 MG Tab PO SCH ×2 (08:50→17:00)
[2023-12-01] MEDS ORDERED: Acetaminophen 325 MG TABLET PO PRN (08:50)
[2023-12-01] MEDS ORDERED: RELUGOLIX 120 MG PO SCH (09:00)
[2023-12-01] MEDS ORDERED: Pregabalin 75 MG Cap PO SCH (09:00)
[2023-12-01] MEDS ORDERED: Tamsulosin HCl 0.4 MG Cap PO SCH (09:00)
[2023-12-01] MEDS ORDERED: Venlafaxine HCl 75 MG CapCR PO SCH (09:00)
[2023-12-01] MEDS ORDERED: Enoxaparin 30 MG/0.3 ML SYR SC SCH (09:00)
[2023-12-01] MEDS ORDERED: HYDROcodone 7.5-APAP 325 TAB PO PRN (09:10)
--- NOTE | 2023-12-01 10:52 | NUR ---
AM NOTES; PT MORE ALERT AND AWAKE THIS MORNING ABLE TO HAVE NORMAL CONVERSATION A&OX3, PT COULDNT REMEMBER WHAT BROUGHT HIM IN THE HOSPITAL. ABLE TO TOLERATE PO INTAKE, PT DOESNT HAVE DENTURES WITH HIM OKAY TO ADVANCE DIET TO SOFT BITE SIZE DIET PT AGREEABLE. PT TOOK MEDS THIS MORNING WITH NO ISSUES. HOME MEDS WERE RESUMED PER DR BAEZ. ANTICIPATING DC TODAY, TOWER LOADER OPERATOR WAS ABLE TO TALK TO THE PT AND FAMILY AT THE BEDSIDE. SISTER REQUESTED TO TALK TO THE TOWER LOADER OPERATOR ON THE PHONE, SISTERS PHONE NUMBER WAS PROVIDED. PT HAS BEEN COOPERATIVE WITH CARES THIS MORNING BED ALARM ON FOR SAFETY. PT WAS GIVEN TYLENOL FOR HEADACHE THIS MORNING. VBG DONE AND WAS IMPROVED. VITALS HRR SR 70-80'S, SBP 170'S, SATS ABOVE 95% ON RA, AFEBRILE. PT NOW RESTING IN BED, DAD AT THE BEDSIDE. NO CURRENT ISSUES. WILL CONTINUE TO MONITOR
[2023-12-01 11:24] VITALS: BP 171/102
[2023-12-01] MEDS ORDERED: Insulin Regular 100 UNIT/ML 10ML Vial SC SCH ×2 (11:30)
[2023-12-01] MEDS ORDERED: NARCAN4 M1 (11:50)
[2023-12-01] MEDS ORDERED: HYDROcodone 7.5-APAP 325 TAB PO SCH (12:00)
--- NOTE | 2023-12-01 12:53 | NUR ---
PT DISCHARGED TO HOME TODAY WITH DISCHARGE ORDERS. ALL NEW MEDICATIONS AND INSTRUCTIONS DISCLOSED TO BOTH PT AND THE DAD AT THE BEDSIDE. BOTH VERBALIZED UNDERSTANDING. NO ISSUES ENCOUNTERED THIS MORNING PT HAS BEEN AMBUALTING IN THE ROOM VITALS HRR SR 70'S, SBP 170'S MD AWARE PT ON HOME BP MEDS, SATS ABOVE95% ON RA, AFEBRILE. ALL BELONGINGS SENT WITH THE PT. PT AMBULATORY UPON DISCHARGE.
[2023-12-01] MEDS ORDERED: DAROLUTAMIDE 600 MG PO SCH (17:00)
[2023-12-01] MEDS ORDERED: QUEtiapine Fumarate 100 MG Tab PO SCH (21:00)
[2023-12-01] MEDS ORDERED: Pravastatin Sodium 20 MG Tab PO SCH (21:00)
[2023-12-02] MEDS ORDERED: Famotidine 20 MG Tab PO SCH (06:00)
[2023-12-02] MEDS ORDERED: Omeprazole 20 MG CapCR PO SCH (06:00)
[2023-12-02] MEDS ORDERED: NARCAN4 M1 (19:54)
[2023-12-02] MEDS ORDERED: FEROSUL325 M1 PO (19:54)
== END 2023-12-01 12:45 | disposition home or self-care (01) ==
LOC: ER 10:25 → PCU 10:26
PROVIDERS: Student in an Organized Health Care Education/Training Program; ADMIT Internal Medicine
DX: G92.8 Other toxic encephalopathy (principal); J44.1 Chronic obstructive pulmonary disease with (acute) exacerbation; E87.29 Other acidosis; N17.9 Acute kidney failure, unspecified; I10 Essential (primary) hypertension; C61 Malignant neoplasm of prostate; E11.9 Type 2 diabetes mellitus without complications; E78.00 Pure hypercholesterolemia, unspecified; K21.9 Gastro-esophageal reflux disease without esophagitis; J96.02 Acute respiratory failure with hypercapnia; J96.01 Acute respiratory failure with hypoxia; F32.9 Major depressive disorder, single episode, unspecified; Z88.0 Allergy status to penicillin; Z88.8 Allergy status to other drugs, medicaments and biological substances; Z79.84 Long term (current) use of oral hypoglycemic drugs; Z79.899 Other long term (current) drug therapy; Z66 Do not resuscitate
CPT/HCPCS: 0241U; 36415; 71045; 80053; 82140; 82803; 82947; 83605; 83735; 84145; 85025; 93005; 93010; 94660; 94762; 96365; 96372; 96375; 99285-25; A9270; G0378; J0360; J0456; J1650; J2919; J7030; J7050; J7120

== ENCOUNTER 2023-12-18 14:45 | Emergency (ER) | payer OTHER ==
[~2023-12-18] VITALS: Ht 167.6 cm; Wt 68.0 kg
[~2023-12-18 14:45] MED LIST changes: +FEROSUL325 M1 PO; +NARCAN4 M1
[2023-12-18] MEDS ORDERED: Acetaminophen 325 MG TABLET PO ONE (15:20)
[2023-12-18] MEDS ORDERED: NS 1,000 ML IV SCH (15:25)
[2023-12-18 15:35] LABS: BASOPHILS ABSOLUTE AUTO 0.01 K/mm3 (0.00-0.23); BASOPHILS PERCENT AUTO 0 % (0-2); EOSINOPHILS ABSOLUTE AUTO 0.15 K/mm3 (0.00-0.68); EOSINOPHILS PERCENT AUTO 1 % (0-6); Hematocrit 27.7 % (37.0-53.0); Hemoglobin 9.6 g/dL (13.5-17.5); IMMATURE GRAN ABSOLUTE AUTO 0.06 K/mm3 (0.00-0.10); IMMATURE GRAN PERCENT AUTO 1 % (0-1); LYMPHOCYTES ABSOLUTE AUTO 0.75 K/mm3 (0.84-5.20); LYMPHOCYTES PERCENT AUTO 7 % (21-46); MONOCYTES ABSOLUTE AUTO 1.02 K/mm3 (0.16-1.47); MONOCYTES PERCENT AUTO 10 % (4-13); Mean Corpuscular HGB Conc 34.7 g/dL (31.5-36.5); Mean Corpuscular Volume 92 fL (80-100); Mean Platelet Volume 9.6 fL (9.1-12.4); NEUTROPHILS ABSOLUTE AUTO 8.58 K/mm3 (1.96-9.15); NEUTROPHILS PERCENT AUTO 81 % (41-73); Platelet Count 207 K/mm3 (150-400); RDW Coefficient Variation 14.5 % (11.7-14.2); RDW Standard Deviation 48.9 fL (35.1-46.3); White Blood Cell Count 10.57 K/mm3 (4.00-11.30)
[2023-12-18 16:07] LABS: Albumin, Blood 3.7 g/dL (3.4-5.0); Albumin/Globulin Ratio 0.9 (0.8-1.8); Bilirubin, Total 0.4 mg/dL (0.1-1.0); Bun/Creatinine Ratio 12.5 (12.0-20.0); Calcium, Blood 8.8 mg/dL (8.5-10.1); Creatinine, Blood 1.44 mg/dL (0.60-1.20); Potassium, Blood 4.1 mmol/L (3.5-5.5); Total Protein, Blood 7.7 g/dL (6.4-8.2)
[2023-12-18 16:08] LABS: Source, Urine Straight Cath
[2023-12-18 16:13] LABS: Appearance, Urine Clear (Clear); Bilirubin, Urine Neg (Neg); Blood, Urine Neg (Neg); Glucose Qualitative, Urine Neg (Neg); Ketones, Urine Neg (Neg); Leukocyte Esterase, Urine Neg (Neg); Nitrite, Urine Neg (Neg); Protein, Urine Neg (Neg); Urobilinogen, Urine NORM (Normal)
[2023-12-18 16:14] LABS: Color, Urine Pale Yellow (P-Yellow)
[2023-12-18 16:59] LABS: Influenza A, PCR NEGATIVE (NEGATIVE); Influenza B, PCR NEGATIVE (NEGATIVE); Resp Syncytial Virus, PCR NEGATIVE (NEGATIVE)
[2023-12-18 17:14] LABS: SARS-Cov-2 (COVID-19) PCR, MMC POSITIVE (NEGATIVE)
[2023-12-18 19:38] VITALS: BP 108/81
== END 2023-12-18 19:39 | disposition home or self-care (01) ==
LOC: ER 14:45
PROVIDERS: Family Medicine
DX: U07.1 COVID-19 (principal); E78.00 Pure hypercholesterolemia, unspecified; I10 Essential (primary) hypertension; K21.9 Gastro-esophageal reflux disease without esophagitis; E11.9 Type 2 diabetes mellitus without complications; E78.5 Hyperlipidemia, unspecified; J44.9 Chronic obstructive pulmonary disease, unspecified; Z79.899 Other long term (current) drug therapy; Z79.51 Long term (current) use of inhaled steroids; Z88.0 Allergy status to penicillin; Z88.6 Allergy status to analgesic agent; Z88.8 Allergy status to other drugs, medicaments and biological substances
CPT/HCPCS: 0241U; 36415; 71046; 80053; 81003; 83605; 84145; 85025; 87040; 93005; 93010; 96360; 96361; 99285-25; A9270; J7030